=== PATIENT | male | born 1985 | race Caucasian/White ===

== ENCOUNTER 2020-12-06 08:51 | Outpatient (CLI) | payer MEDICARE, MEDICAID, SELFPAY | END 2020-12-06 08:52 | disposition home or self-care (01) | DX: H91.93 Unspecified hearing loss, bilateral (principal) | CPT/HCPCS: 92557; 92567 ==

== ENCOUNTER 2023-11-27 08:23 | Outpatient (CLI) | payer MEDICARE, MEDICAID, SELFPAY | END 2023-11-27 08:24 | disposition home or self-care (01) | LOC: ANHBWCAUD 08:24 | PROVIDERS: PCP Family Medicine; Visit Provider Family Medicine | DX: H91.93 Unspecified hearing loss, bilateral (principal) | CPT/HCPCS: 92552; 92556; 92567 ==